=== PATIENT | male | born 1945 | race Caucasian/White ===

== ENCOUNTER 2023-05-25 14:20 | Outpatient (CLI) | payer MEDICARE, OTHER, SELFPAY | END 2023-05-25 14:21 | disposition home or self-care (01) | LOC: INJ CL 14:20 | PROVIDERS: PCP Family Medicine; Visit Provider Family Medicine | DX: M54.16 Radiculopathy, lumbar region (principal); M51.36 Other intervertebral disc degeneration, lumbar region | CPT/HCPCS: 64483; J1100; Q9966 ==

== ENCOUNTER 2024-12-19 07:42 | Outpatient (CLI) | payer MEDICARE, OTHER, SELFPAY | END 2024-12-19 07:43 | disposition home or self-care (01) | LOC: INJ CL 07:44 | PROVIDERS: PCP Family Medicine; Visit Provider Family Medicine | DX: M54.16 Radiculopathy, lumbar region (principal); M51.369 Other intervertebral disc degeneration, lumbar region without mention of lumbar back pain or lower extremity pain | CPT/HCPCS: 64483; J1100; Q9966 ==